=== PATIENT | female | born 1965 | race Two or more races ===

== ENCOUNTER 2023-01-19 22:28 | Emergency (ER) | payer OTHER ==
[~2023-01-19] VITALS: Ht 157.5 cm; Wt 61.2 kg
[2023-01-19 22:44] VITALS: BP 129/73; TEMP 98.7; O2SAT 99
[2023-01-19] MEDS ORDERED: DIATR MEGLU/DIATRIZOATE SODIUM 30 ML BOTTLE (GASTROGRAPHIN) ONE (22:49)
== END 2023-01-20 00:31 ==
LOC: ER 22:40
DX: Z43.1 Encounter for attention to gastrostomy (principal); I63.9 Cerebral infarction, unspecified; I10 Essential (primary) hypertension; E11.9 Type 2 diabetes mellitus without complications
CPT/HCPCS: 99283; 74018; Q9963

== ENCOUNTER 2025-04-09 09:50 | Inpatient (IN) | payer OTHER ==
[~2025-04-09] VITALS: Ht 154.9 cm; Wt 54.4 kg
[2025-04-09 10:29] LABS: PLATELET COUNT (AUTO) 327 K/uL (150-450); RED BLOOD CELL COUNT(AUTO) 3.06 MIL/uL (4.0-5.2); RED CELL DISTRIBUTION WIDTH 16.9 % (11.5-15.0); WHITE BLOOD COUNT (AUTO) 6.7 K/uL (4.3-11.0)
[2025-04-09] MEDS: LEVETIRACETAM (500MG) 500 MG in IV NS 0.9% 100 ML IV SCH (10:34)
[2025-04-09 10:42] LABS: CALCIUM, SERUM 8.4 mg/dL (8.5-10.1); CREATININE 0.5 mg/dL (0.6-1.3); INR 1.02 (0.91-1.10); SODIUM SERUM 142.0 mmol/L (136-145); UREA NITROGEN, BLOOD 18.0 mg/dL (7-18)
[2025-04-09 10:43] LABS: ABG BASE EXCESS 6.3 mmol/L (-2.0-3.0); ABG OXYGEN SATURATION 99.4 % (94.0-98.0); ABG PCO2 39.1 mmHg (32.0-45.0); ABG PH 7.502 (7.350-7.450); ABG PO2 345.9 mmHg (83.0-108.0); ABG TOTAL HEMOGLOBIN 9.7 G/dL (12.0-16.0); FRACTIONATED INSPIRED OXYGEN 100.0 %; PEEP,BG 5 cm H2O; SET RATE, BG 12.0; SITE, ABG LEFT RADIAL; VT, ABG 350 mL
[2025-04-09 10:47] LABS: ASPARTATE AMINOTRANSFERASE 21.0 U/L (15-37); TOTAL PROTEIN, SERUM 8.2 g/dL (6.4-8.2)
[2025-04-09 11:01] LABS: LACTIC ACID 1.6 mmol/L (0.4-2.0)
[2025-04-09] MEDS ORDERED: AMIN30LI66 GT (11:10)
[2025-04-09] MEDS ORDERED: CLOB15OI3 TP (11:10)
[2025-04-09] MEDS ORDERED: DESM0.1T GT (11:10)
[2025-04-09] MEDS ORDERED: ASCO500T20 GT (11:10)
[2025-04-09] MEDS ORDERED: ACET-73 GT (11:10)
[2025-04-09] MEDS ORDERED: CHLO473M5 PO (11:10)
[2025-04-09] MEDS ORDERED: NUT.237L30 GT (11:10)
[2025-04-09] MEDS ORDERED: ASPI-1169 PO (11:10)
[2025-04-09] MEDS ORDERED: MAGN400T30 PO (11:10)
[2025-04-09] MEDS ORDERED: FERR220E2 GT (11:10)
[2025-04-09] MEDS ORDERED: ACET325T53 GT ×3 (11:10)
[2025-04-09] MEDS ORDERED: INSU100V7 SQ (11:10)
[2025-04-09] MEDS ORDERED: PRED20TA GT (11:10)
[2025-04-09] MEDS ORDERED: CRAN3875 GT (11:10)
[2025-04-09] MEDS ORDERED: IPRA3AMP23 IH ×2 (11:10)
[2025-04-09] MEDS ORDERED: METO25TA6 GT (11:10)
[2025-04-09] MEDS ORDERED: MULT-213 GT (11:10)
[2025-04-09] MEDS ORDERED: FAMO-131 GT (11:10)
[2025-04-09] MEDS ORDERED: CRAN425C6 GT (11:10)
[2025-04-09] MEDS ORDERED: MIDA5SPR NS (11:10)
[2025-04-09] MEDS ORDERED: INSU100V42 SQ (11:10)
[2025-04-09] MEDS ORDERED: LEVE500S9 GT (11:10)
[2025-04-09] MEDS ORDERED: DOCU50LI GT (11:10)
[2025-04-09] MEDS ORDERED: POLY119P2 GT (11:10)
[2025-04-09 11:24] LABS: APPEARANCE,URINE CLOUDY (CLEAR); BLOOD, URINE 2+ Ery/uL (NEGATIVE); LEUKOCYTE ESTERASE ,URINE 3+ (NEGATIVE); NITRITE, URINE NEGATIVE (NEGATIVE); UGLUCOSE NEGATIVE (NEGATIVE)
[2025-04-09 11:39] LABS: ADD URINE CULTURE YES
[2025-04-09 11:41] LABS: TRIPLE PHOSPHATE CRYSTAL,UR Few /HPF (None Seen)
[2025-04-09] MEDS: CEFTRIAXONE 1GM BAG (ER ONLY) 1 GM/50 ML PIGGYBACK IV ONE (11:50)
[2025-04-09] MEDS ORDERED: CEFTRIAXONE 1GM BAG (ER ONLY) 50 ML IV ONE (11:51)
[2025-04-09] MEDS ORDERED: DOSING PER PHARMACY-CEFEPIME IVPB XX PRN (12:30)
[2025-04-09] MEDS ORDERED: ONDANSETRON HCL/PF 4 MG/2 ML VIAL IVP PRN (12:30)
[2025-04-09] MEDS ORDERED: DOSING PER PHARMACY-VANCOMYCIN IV XX PRN (12:30)
[2025-04-09] MEDS ORDERED: Z GUARD REMEDY 4 OZ OINT TP PRN (12:30)
[2025-04-09] MEDS: VANCOMYCIN HCL 1.25 GM in IV D5W 250 ML IV ONE (13:41)
[2025-04-09] MEDS: ENOXAPARIN SODIUM 40 MG/0.4 ML DISP.SYRIN SQ SCH (14:05)
[2025-04-09] MEDS: IV NS 0.9% 1,000 ML IV PRN (14:08)
[2025-04-09] MEDS: CEFEPIME 2 GM in IV D5W 100 ML IV SCH (15:25)
[2025-04-09 16:00] VITALS: BP 109/52; TEMP 98.3; O2SAT 100
[2025-04-09] MEDS: LEVETIRACETAM (500MG) 1,000 MG in IV NS 0.9% 90 ML IV SCH (21:18)
[2025-04-10] MEDS: VANCOMYCIN HCL 1.25 GM in IV D5W 250 ML IV SCH (01:39)
[2025-04-10 06:31] LABS: PLATELET COUNT (AUTO) 331 K/uL (150-450); RED BLOOD CELL COUNT(AUTO) 2.99 MIL/uL (4.0-5.2); RED CELL DISTRIBUTION WIDTH 17.2 % (11.5-15.0); WHITE BLOOD COUNT (AUTO) 6.4 K/uL (4.3-11.0)
[2025-04-10 06:42] LABS: CALCIUM, SERUM 8.0 mg/dL (8.5-10.1); CREATININE 0.5 mg/dL (0.6-1.3); PHOSPHORUS 2.5 mg/dL (2.5-4.9); SODIUM SERUM 141.0 mmol/L (136-145); UREA NITROGEN, BLOOD 14.0 mg/dL (7-18)
[2025-04-10 07:05] LABS: LDL 41.0 mg/dL (0-99)
[2025-04-10] MEDS: PANTOPRAZOLE 40 MG VIAL IV SCH (09:47)
[2025-04-10] MEDS: ACETAMINOPHEN 650 MG/SUPP.RECT RC PRN (12:46)
[2025-04-10 20:00] VITALS: BP_SYST 111; BP_SYST 88; BP_DIAS 57; BP_DIAS 59; TEMP 97.4; TEMP 98.8; O2SAT 100; O2SAT 98
[2025-04-11] VITALS: BP 121/57; TEMP 98.3; O2SAT 99
[2025-04-11 04:00] VITALS: BP 112/60; TEMP 99.1; O2SAT 100
[2025-04-11 08:00] VITALS: BP 124/54; TEMP 98.4; O2SAT 100
[2025-04-11] MEDS: THERAHONEY GEL 1.5 OZ TUBE TP SCH (09:46)
[2025-04-11 12:00] VITALS: BP 109/50; TEMP 98.2; O2SAT 100
[2025-04-11 12:49] LABS: PLATELET COUNT (AUTO) 343 K/uL (150-450); RED BLOOD CELL COUNT(AUTO) 2.91 MIL/uL (4.0-5.2); RED CELL DISTRIBUTION WIDTH 17.1 % (11.5-15.0); WHITE BLOOD COUNT (AUTO) 10.1 K/uL (4.3-11.0)
[2025-04-11 12:51] LABS: ASPARTATE AMINOTRANSFERASE 15.0 U/L (15-37); CALCIUM, SERUM 8.0 mg/dL (8.5-10.1); CREATININE 0.4 mg/dL (0.6-1.3); PHOSPHORUS 2.4 mg/dL (2.5-4.9); SODIUM SERUM 142.0 mmol/L (136-145); TOTAL PROTEIN, SERUM 7.6 g/dL (6.4-8.2); UREA NITROGEN, BLOOD 8.0 mg/dL (7-18)
[2025-04-11 16:00] VITALS: BP 96/48; TEMP 98.8; O2SAT 100
[2025-04-11] MEDS: Sodium Phosphate 15 MMOL in IV NS 0.9% 245 ML IV SCH (16:31)
[2025-04-11] MEDS: MEROPENEM 1 G in IV NS 0.9% 100 ML IV SCH (16:31)
[2025-04-11 20:00] VITALS: BP 111/59; TEMP 98.9; O2SAT 100
[2025-04-11] MEDS: LEVETIRACETAM (500MG) 1,500 MG in IV NS 0.9% 85 ML IV SCH (20:59)
[2025-04-12] VITALS: BP 118/63; TEMP 98.7; O2SAT 100
[2025-04-12 04:00] VITALS: BP 112/60; TEMP 98.7; O2SAT 100
[2025-04-12 08:00] VITALS: BP 136/64; TEMP 98.8; O2SAT 100
[2025-04-12 12:00] VITALS: BP 123/59; TEMP 98.6; O2SAT 100
[2025-04-12] MEDS: GLUCERNA 1.2 1,000 ML BOTTLE NG PRN (13:34)
[2025-04-12 14:40] LABS: PLATELET COUNT (AUTO) 382 K/uL (150-450); RED BLOOD CELL COUNT(AUTO) 2.94 MIL/uL (4.0-5.2); RED CELL DISTRIBUTION WIDTH 17.0 % (11.5-15.0); WHITE BLOOD COUNT (AUTO) 6.7 K/uL (4.3-11.0)
[2025-04-12 14:59] LABS: ASPARTATE AMINOTRANSFERASE 22.0 U/L (15-37); CALCIUM, SERUM 7.9 mg/dL (8.5-10.1); CREATININE 0.4 mg/dL (0.6-1.3); PHOSPHORUS 2.3 mg/dL (2.5-4.9); SODIUM SERUM 146.0 mmol/L (136-145); TOTAL PROTEIN, SERUM 7.8 g/dL (6.4-8.2); UREA NITROGEN, BLOOD 5.0 mg/dL (7-18)
[2025-04-12] MEDS: NEUTRA PHOS 1 POWD.PACKET GT ONE (15:30)
[2025-04-12 16:00] VITALS: BP 117/60; TEMP 99.3; O2SAT 96
[2025-04-12 19:39] VITALS: BP 121/44; TEMP 98.2; O2SAT 98
== END 2025-04-12 22:02 | DRG 53 ==
LOC: ER 09:58 → TELE1 11:35
PROC: 5A1945Z Respiratory Ventilation, 24-96 Consecutive Hours (ICD-10-PCS; principal; 2025-04-09)
DX: G40.409 Other generalized epilepsy and epileptic syndromes, not intractable, without status epilepticus (principal); Z99.11 Dependence on respirator [ventilator] status; G93.40 Encephalopathy, unspecified; R53.2 Functional quadriplegia; R13.10 Dysphagia, unspecified; J96.10 Chronic respiratory failure, unspecified whether with hypoxia or hypercapnia; Z93.0 Tracheostomy status; N39.0 Urinary tract infection, site not specified; B96.4 Proteus (mirabilis) (morganii) as the cause of diseases classified elsewhere; I10 Essential (primary) hypertension; E11.9 Type 2 diabetes mellitus without complications; D64.9 Anemia, unspecified; Z86.73 Personal history of transient ischemic attack (TIA), and cerebral infarction without residual deficits; Z93.1 Gastrostomy status; Z91.013 Allergy to seafood; Z79.51 Long term (current) use of inhaled steroids; Z79.82 Long term (current) use of aspirin; Z79.4 Long term (current) use of insulin; Z79.899 Other long term (current) drug therapy; Z98.2 Presence of cerebrospinal fluid drainage device; G91.9 Hydrocephalus, unspecified; Z74.01 Bed confinement status; Z16.12 Extended spectrum beta lactamase (ESBL) resistance
CPT/HCPCS: 31720; 36415; 36600; 70450-TC; 71045-TC; 80048-TC; 80053-TC; 80061-TC; 80076-TC; 80202-TC; 81001; 82803-TC; 83605-TC; 83735-TC; 84100-TC; 84443-TC; 85025-TC; 85730-TC; 87040-TC; 87081-TC; 87086-TC; 87186-TC; 94002-TC; 94003-TC; 94760-TC; 94762-TC; 94799-TC; 95819-TC; A4223; A6403; A9563; G0378; J0692; J0696; J1650; J1953; J2185; J2470; J7030; J7040; J7050; J7060